=== PATIENT | female | born 1975 | race Caucasian/White ===

== ENCOUNTER 2022-06-05 09:17 | Emergency (ER) | payer OTHER ==
[2022-06-05 09:26] VITALS: BMI 30.8
[2022-06-05] MEDS ORDERED: ACETAMINOPHEN 1000 MG/100 ML BAG IVPB ONE (10:44)
[2022-06-05] MEDS ORDERED: LACTATED RINGERS SOLUTION 1,000 ML/1,000 ML INFUS.BAG IV SCH (10:45)
[2022-06-05] MEDS ORDERED: METOCLOPRAMIDE HCL INJECTION 10 MG/2 ML VIAL IVPUSH ONE (10:50)
[2022-06-05] MEDS ORDERED: LACTATED RINGERS SOLUTION 1000 ML INFUS.BAG IV ONE (11:20)
[2022-06-05 11:41] LABS: HEMATOCRIT 39.1 % (32.4-45.2); HEMOGLOBIN 12.6 GM/dL (10.7-15.3); MCH 29.1 pg (25.7-33.7); MCHC 32.3 g/dl (32.0-36.0); MEAN CELL VOLUME 90.3 fl (80-96); MEAN PLT VOLUME 10.5 fl (7.5-11.1); PLATELET COUNT 246 10^3/uL (134-434); RBC 4.33 M/mm3 (3.60-5.2)
[2022-06-05 12:07] VITALS: BP 141/65; PULSE 72; RESP 16; TEMP 98.8
[2022-06-05 12:08] LABS: CALCIUM 9.4 mg/dL (8.5-10.1)
[2022-06-05 12:09] LABS: ALBUMIN 4.3 g/dl (3.4-5.0); BLOOD UREA NITROGEN 7.7 mg/dL (7-18)
[2022-06-05 12:12] LABS: CREATININE 0.6 mg/dL (0.55-1.3)
[2022-06-05 12:13] LABS: BILIRUBIN,TOTAL 0.3 mg/dL (0.2-1)
[2022-06-05 12:14] LABS: TOT PROT 8.2 g/dl (6.4-8.2)
== END 2022-06-05 12:08 | disposition home or self-care (01) ==
LOC: JER 09:17
PROC: 3E0333Z Introduction of Anti-inflammatory into Peripheral Vein, Percutaneous Approach (ICD-10-PCS; principal; 2022-06-05)
PROC: 3E033GC Introduction of Other Therapeutic Substance into Peripheral Vein, Percutaneous Approach (ICD-10-PCS; 2022-06-05)
DX: G43.909 Migraine, unspecified, not intractable, without status migrainosus (principal)
CPT/HCPCS: 36415; 80053; 85027; 93005; 93010; 99284-25